=== PATIENT | female | born 1965 | race Caucasian/White ===

== ENCOUNTER 2020-03-29 09:26 | Inpatient (IN) | payer OTHER, SELFPAY ==
[2020-03-29] VITALS (10 sets, daily range): BP systolic 109–140; BP diastolic 58–97; PULSE 93–115; RESP 13–20; TEMP 36.9–37.1; O2SAT 92–100; BMI 35.9
--- NOTE | ~2020-03-29 | US_ITS ---
EXAMINATION: US venous doppler LE EXAM DATE: 03/30/2020 08:16 INDICATION: Pulmonary emboli PE . TECHNIQUE: Multiple grayscale, color flow and Doppler images of the lower extremity deep venous syste ms bilaterally were obtained and reviewed. There is no prior study for comparison. FINDINGS: Right side: The right common femoral, femoral and profunda veins demonstrate normal color flow, respi ratory variation, augmentation and compressibility. Compressibility, color flow confirmed within the right popliteal, posterior tibial, peroneal, and greater saphenous veins. Left side: The left common femoral, femoral and profunda veins demonstrate normal color flow, respira tory variation, augmentation and compressibility. Compressibility, color flow confirmed within the l eft popliteal, posterior tibial, peroneal, and greater saphenous veins. IMPRESSION: 1. No lower extremity deep venous thrombosis bilaterally. Reviewed, dictated and finalized at location A. THERAPIST
--- NOTE | ~2020-03-29 | CT_ITS ---
EXAMINATION: CT brain wo con EXAM DATE: 03/29/2020 10:56 INDICATION: syncope, headache . Dizziness. Breast cancer. TECHNIQUE: Spiral CT of the head was performed without contrast. Axial, coronal and sagittal images were reviewed. The dose-length product (DLP) for this examination was 605.33 mGy-cm. The exposure w as tailored according to patient size, and iterative reconstruction (ASIR) was used as additional dos e reduction technique. There is no prior study for comparison. FINDINGS: There is no acute intraparenchymal hemorrhage. No evidence of intraparenchymal brain mass lesion. No evidence of acute infarction. There is no mass effect or midline shift. The ventricles are normal in size. There are no extra-axial collections. There are no acute calvarial fractures. T he orbits are unremarkable. Soft tissue is unremarkable. The visualized sinuses and mastoid air naomie ls are well aerated. IMPRESSION: 1. No acute intracranial findings. Reviewed, dictated and finalized at location A. ANALYST
--- NOTE | ~2020-03-29 | CT_ITS ---
EXAMINATION: CTA chest PE protocol DATE: 03/29/2020 12:10 INDICATION: Syncope. TECHNIQUE: Computed tomography angiography (CTA) of the chest was performed with 100 mL Omnipaque-350 intravenous contrast timed to evaluate the pulmonary arteries. Coronal maximum intensity projection 3D-reconstructions were created by the technologist. Automated exposure control and iterative reconst ruction technique were employed. The dose-length product was 605.75 mGy-cm. COMPARISON: None. FINDINGS: There are scattered groundglass opacities in all lobes. The lung volumes are small. A calci fied right lung nodule and calcified right hilar lymph nodes are consistent with old granulomatous di sease. No pleural effusion. The heart size is normal. No pericardial effusion. A left upper extremity peripherally inserted central venous catheter (PICC) is seen with tip at the superior cavoatrial mckayla ction. Right brachiocephalic vein is small, and there are enlarged collateral veins. There are change s of left mastectomy. Calcifications in the spleen are consistent with old granulomatous disease. The re are changes of cholecystectomy. There is a small sliding hiatal hernia. There is a pulmonary embol us in basilar right lower lobe. There is mild thoracic spondylosis. IMPRESSION: 1. Acute pulmonary embolus in basilar right lower lobe. 2. Scattered groundglass opacities in all lobes suspicious for atypical pneumonia such as COVID-19 pn eumonia. 3. I discussed these results with Dr. Vuong on 03/29/20 at 12:19 PM. Reviewed, dictated and finalized at location A. AIDE IMPRESSION: 1. Acute pulmonary embolus in basilar right lower lobe. 2. Scattered groundglass opacities in all lobes suspicious for atypical pneumon ia such as COVID-19 pneumonia. 3. I discussed these results with Dr. Vuong on 03/29/20 at 12:19 PM.
--- NOTE | ~2020-03-29 | XR_ITS ---
EXAMINATION: XR chest 1V portable DATE: 03/29/2020 10:47 INDICATION: Syncope. TECHNIQUE: A single frontal view of the chest was obtained. COMPARISON: None. FINDINGS: There are interstitial opacities in left mid and lower lung zones. No pleural effusion or p neumothorax. The heart size is normal. A left upper extremity peripherally inserted central venous ca theter (PICC) is seen with tip at the superior cavoatrial junction. IMPRESSION: 1. Interstitial opacities in left mid and lower lung zones, consistent with mild atelectasis versus m ild pulmonary edema. Reviewed, dictated and finalized at location A. ON PULLER IMPRESSION: 1. Interstitial opacities in left mid and lower lung zones, consistent with mil d atelectasis versus mild pulmonary edema.
--- NOTE | 2020-03-29 10:10 | ECG_ITS ---
Measurements Intervals [place] Rate: 103 P: 39 KS: 123 QRS: -5 QRSD: 84 T: 23 QT: 338 QTc: 443 Interpretive Statements SINUS TACHYCARDIA BORDERLINE T WAVE ABNORMALITY- INFERIOR LEADS ABNORMAL ECG Electronically Signed On 03-29-2020 14:11:55 CHEMICAL RADIATION TECHNICIAN by Jaguar Almanza D.O.
--- NOTE | 2020-03-29 10:15 | PC.NURSE ---
Patient refused straight cath at this time, states unable to urinate at this time.
[2020-03-29 10:29] LABS: Glucose Point of Care 169 (65-105)
[2020-03-29] MEDS: SODIUM CHLORIDE 0.9% IV 1,000 ML 999 ML IV CONT (10:35)
[2020-03-29 10:50] LABS: Eosinophils Percent Auto 0.8 % (0-4.4); Hematocrit 26.9 % (37.0-47.0); Hemoglobin 8.8 g/dL (12.0-15.0); Immature Granulocyte Absolute 0.01 K/mm3 (0.00-0.031); Immature Granulocyte Percent A 0.4 % (0-0.5); Lymphocytes Absolute Auto 0.18 K/mm3 (0.9-3.2); Lymphocytes Percent Auto 6.8 % (18.3-44.2); Mean Corpuscular HGB Conc 32.7 g/dl (32-36); Mean Corpuscular Hemoglobin 32.5 pg (26-34); Mean Corpuscular Volume 99.3 fl (80-100); Mean Platelet Volume 10.2 fl (7.4-10.4); Monocytes Absolute Auto 0.1 K/mm3 (0.1-0.6); Neutrophils Absolute Auto 2.3 K/mm3 (1.3-6.7); Platelet Count Result 259 k/mm3 (150-375); Red Blood Count 2.71 M/mm3 (4.2-5.4); Red Cell Distribution Width 15.3 % (11.5-14.5); White Blood Count 2.6 K/mm3 (4.5-10.0)
[2020-03-29 11:00] LABS: Partial Thromboplastin Time 25.2 SECONDS (22.3-36.8)
[2020-03-29 11:04] LABS: INR 1.1; Prothrombin Time 14.5 Seconds (11.1-14.7)
[2020-03-29 11:07] LABS: D Dimer 0.54 ug/mL (<0.48)
--- NOTE | 2020-03-29 11:09 | PC.NURSE ---
Unable to flush PICC at this time, vascular access called and recommends cath sabrina.
[2020-03-29 11:14] LABS: Magnesium 1.9 mg/dL (1.6-2.3)
[2020-03-29 11:17] LABS: Alanine Aminotransferase 30 U/L (4-35); Albumin Level 3.8 g/dL (3.5-5.1); Alkaline Phosphatase 75 U/L (38-126); Anion Gap 10 mmol/L (8-16); Aspartate Amino Transferase 39 U/L (14-36); Bilirubin,Total 0.6 mg/dL (0.2-1.3); Blood Urea Nitrogen 15 mg/dL (7-17); Calcium 8.5 mg/dL (8.4-10.2); Carbon Dioxide 22 mmol/L (22-30); Chloride 105 mmol/L (98-107); Estimated CRCL calculation 101 ml/min; Estimated Glomerular Filt Rate > 60; Glucose 152 mg/dL (65-105); Potassium 3.8 mmol/L (3.4-5.0); Sodium 137 mmol/L (137-145)
[2020-03-29 11:28] LABS: Troponin I 0.032 ng/mL (0.000-0.034)
[2020-03-29] MEDS: LACTATED RINGERS 1,000 ML 999 ML IV CONT (12:25)
[2020-03-29] MEDS: ALTEPLASE 2 MG VIAL (CATHFLO) IV PUSH ×2 (12:25)
--- NOTE | 2020-03-29 13:03 | ED.DIZZY ---
HPI - Dizziness General Chief Complaint: Dizziness Stated Complaint: weakness, dizzines Time Seen by Provider: 03/29/20 09:39 Source: patient Mode of arrival: EMS Limitations: no limitations History of Present Illness HPI Narrative: This patient is a 54 year old female who presents for evaluation of syncopal episode. She was at work and she thinks she passed out. She was feeling fine before this event. She complaints of headache and dizziness currently. She denies chest pain, sob, nausea, vomiting or diarrhea. She is currently receiving chemotherapy for breast Cancer that was diagnosed a few months ago. She was started on Xarelto for a blood clot on her nima cath. Related Data Home Medications Medication Instructions Recorded Confirmed Claritin 10 mg BYMOUTH DAILY 03/29/20 03/29/20 Xarelto 20 mg BYMOUTH DAILY 03/29/20 03/29/20 paroxetine HCl 03/29/20 Allergies Allergy/AdvReac Type Severity Reaction Status Date / Time Sulfa (Sulfonamide Allergy Unknown Verified 03/29/20 14:55 Antibiotics) Review of Systems Review of Systems: All systems reviewed & are unremarkable except as noted in HPI and below Constitutional: Constitutional: Denies chills and Denies fever(s) Cardiovascular: Cardiovascular: Denies chest pain Respiratory: Respiratory: Denies cough and Denies dyspnea Gastrointestinal: Gastrointestinal: Denies abdominal pain, Denies nausea and Denies vomiting PMFSH Past Medical History Medical History (Updated 03/29/20 @ 18:48 by Sangita Vuong MD) Breast cancer Patient receives chemotherapy every Wednesday and her radiation will be again after she completed her chemotherapy. 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 She became a this past January when her went into renal failure. She has 3 children. She is a full code. She desires to have her daughter as her durable power commercial litigation attorney for healthcare. The patient is a lifelong nonsmoker. She does not use alcohol marijuana or illicit drugs. Smoking status: Never smoker Second hand tobacco smoke exposure: No Alcohol intake: never Substance use: never Living arrangements: alone Occupation/Education: occupation Gender identity (if verbalized by the patient): Female Sexual Orientation (if Verbalized by the Patient): Straight or Heterosexual Spiritual care concerns: Yes Exam Const: General: no acute distress and alert Orientation/consciousness: patient oriented x3 Other: she appears to not feel well HENMT: Head: normocephalic and atraumatic Face and sinus: face symmetric Mouth: Yes Normal oral and palatal mucosa present, Yes lip normal, Yes oropharynx normal and Yes moist mucous membranes Throat: posterior oropharynx normal Eyes: Pupils: Equal, round and reactive pupils present EOM: EOMs intact bilaterally Chest: Chest palpation & inspection: normal inspection of the chest Resp: Effort & Inspection: normal respiratory effort and no retractions Auscultation: clear to auscultation bilaterally Cardio: Rate: tachycardic Rhythm: regular rhythm Heart sounds: no murmurs GI: GI Palp: Yes Soft to palpation, No Tenderness to palpation present (GI), No Guarding due to palpation present (GI) and No Rigid due to palpation Auscultation: normal bowel sounds Skin: General skin exam: pallor Rashes: no rashes Neuro: General: patient oriented x3 and moves all extremities Course Vital Signs
[2020-03-29] MEDS: ENOXAPARIN 100 MG/ML SYRINGE SUB-Q (13:22)
[2020-03-29 14:09] LABS: Add Urine Microscopic? YES; Appearance Urine Clear (Clear); Bilirubin Urine Negative (Negative); Blood Urine Negative (Negative); Color Urine Yellow (Yellow); Glucose Urine UA Negative (Negative); Ketones Urine Negative (Negative); Leukocyte Esterase Ur Negative LEU/UL (Negative); Nitrate Urine Negative (Negative); Protein Urine 1+ mg/dL (Negative); RBC Urine 0-2 /hpf (0-2); Urobilinogen Urine Negative mg/dL (<2.0); WBC Urine 0-3 /hpf
[2020-03-29 14:18] LABS: Specific Grav Ur 1.058 (1.001-1.035)
--- NOTE | 2020-03-29 14:51 | ADMGEN ---
This patient, Gwendolyn Masterson, was admitted to [facility] Surg Room 328-01. Patient/family oriented to hospital policies and general routines including ID bracelet, bed and alarms, visiting hours, pain management, procedures, bathroom and other care routines, personal items, smoking policy, room service/diet, and visiting hours. Information on how to activate the Rapid Response Team has been discussed. Patient/Family are encouraged to report perceived risks to care and to ask questions if they do not understand what they are told or what they should do.
--- NOTE | 2020-03-29 18:29 | PM.IMHP ---
H&P: HPI History of Present Illness Date/Time: 03/29/20 18:29 Chief complaint: Syncope,Pulmonary Embolism,Possible COVID Narrative: Gwendolyn Masterson is a 54 year old female who resides in [place]. The patient lives approximately 2 hours away from here. The patient had been diagnosed with breast cancer September of this year. She had been receiving chemotherapy every Wednesday her last treatment was on Wednesday. The patient had not been back to work and decided that she was going to go to meeting for her work over the next 2 days. The patient had a history of having a blood clot around her Port-A-Cath and it was removed and now has a PICC line. The patient was sitting in her office at this meeting when she passed out. But the patient has been on Xarelto for her clot that she had an her Port-A-Cath. She states that she has been taking it daily. Patient had a CTA that was read as acute pulmonary embolus in basilar right lower lobe. Scattered ground glass opacities in all lobes suspicious for atypical pneumonia such as COVID-19. The patient was swabbed and was placed in isolation for possibility of having covid 19. The patient denies any fever chills. [id number] and she tells me that her normal baseline. Her white counts 2.6. Neutrophil 89.0. The patient was given subcu Lovenox and her Xarelto has been on hold. The patient's blood pressure was also found to be low when EMS was activated however her blood pressure was 116/73 when she was here in the emergency room. Patient had been on lisinopril at 1 time but had stopped taking it because her blood pressures were too low. Patient denies any shortness of breath and is on room air. The patient was being admitted/placed in observation bed on 3rd floor isolation. Date of service is 03/29/2020. Review of Systems Review of Systems: All systems reviewed & are unremarkable except as noted in HPI and below Constitutional: Constitutional: Reports as per HPI and Reports no additional constitutional complaints Eyes: Eyes: Reports as per HPI and Reports no additional eye complaints ENT: Reports system reviewed and no additional complaints, except as documented and Reports Normal hearing present Cardiovascular: Cardiovascular: Reports no additional cardiovascular complaints Respiratory: Respiratory: Reports no additional respiratory complaints and Reports no additional respiratory complaints Gastrointestinal: Gastrointestinal: Reports as per HPI and Reports no additional gastrointestinal complaints Musculoskeletal: Musculoskeletal: Reports no additional musculoskeletal complaints Integumentary/Breasts: Skin/Breast: Reports system reviewed and no additional complaints, except as docu and Reports as per HPI Neurologic: Reports system reviewed and no additional complaints, except as documented, Reports as per HPI and Reports Normal hearing present Psychiatric: Psychiatric: Reports no additional psychiatric complaints and Reports as per HPI Endocrine: Endocrine: Reports no additional endocrine complaints Hematologic/Lymphatic: Hematologic/Lymphatic: Reports no additional hematologic/lymphatic complaints Allergic/Immunologic: Allergic/Immunologic: Reports no additional allergic/immunologic complaints [facility] Past Medical History Medical History (Updated 03/29/20 @ 18:48 by Sangita Vuong MD) Breast cancer Patient receives chemotherapy every Wednesday and her radiation will be again after she completed her chemotherapy. Depression with anxiety Hypertension Patient stopped her Lisinopril Surgical History Surgical History (Updated 03/29/20 @ 18:37 by Dede Salas NP) H/O mastectomy History of partial hysterectomy History of removal of Port-a-Cath Due to blood clot Hx of cholecystectomy Family History Family History (Updated 03/29/20 @ 18:38 by Dede Salas NP) Father Hypertension Social History Social History (Updated 03/29/20 @ 18:39 by Dede Salas NP) Social History: The
[2020-03-29] MEDS: ONDANSETRON INJ 4 MG/2 ML VIAL IV PUSH (20:28)
[2020-03-30] VITALS (11 sets, daily range): BP systolic 104–136; BP diastolic 68–77; PULSE 84–106; RESP 14–20; TEMP 36.7–37.6; O2SAT 96–97
[2020-03-30] MEDS: ENOXAPARIN 120 MG/0.8 ML SYRINGE 105 MG SUB-Q ×2 (02:47→14:57)
[2020-03-30 05:35] LABS: Eosinophils Percent Auto 1.4 % (0-4.4); Hematocrit 24.4 % (37.0-47.0); Immature Granulocyte Absolute 0.01 K/mm3 (0.00-0.031); Immature Granulocyte Percent A 0.7 % (0-0.5); Lymphocytes Absolute Auto 0.46 K/mm3 (0.9-3.2); Lymphocytes Percent Auto 32.9 % (18.3-44.2); Mean Corpuscular HGB Conc 32.8 g/dl (32-36); Mean Corpuscular Hemoglobin 32.7 pg (26-34); Mean Corpuscular Volume 99.6 fl (80-100); Mean Platelet Volume 9.6 fl (7.4-10.4); Monocytes Absolute Auto 0.1 K/mm3 (0.1-0.6); Monocytes Percent Auto 4.3 % (2.6-8.5); Neutrophils Absolute Auto 0.9 K/mm3 (1.3-6.7); Neutrophils Percent Auto 60.7 % (45.5-73.1); Platelet Count Result 231 k/mm3 (150-375); Red Blood Count 2.45 M/mm3 (4.2-5.4); Red Cell Distribution Width 15.1 % (11.5-14.5)
[2020-03-30 05:42] LABS: White Blood Count 1.4 K/mm3 (4.5-10.0)
[2020-03-30 05:53] LABS: Alanine Aminotransferase 24 U/L (4-35); Albumin Level 3.4 g/dL (3.5-5.1); Alkaline Phosphatase 68 U/L (38-126); Anion Gap 3 mmol/L (8-16); Aspartate Amino Transferase 28 U/L (14-36); Bilirubin,Total 0.4 mg/dL (0.2-1.3); Blood Urea Nitrogen 10 mg/dL (7-17); Calcium 8.1 mg/dL (8.4-10.2); Carbon Dioxide 26 mmol/L (22-30); Chloride 108 mmol/L (98-107); Estimated CRCL calculation 116 ml/min; Estimated Glomerular Filt Rate > 60; Glucose 135 mg/dL (65-105); Potassium 3.7 mmol/L (3.4-5.0); Sodium 137 mmol/L (137-145)
[2020-03-30] MEDS: PARoxetine 20 MG TABLET PO (09:47)
--- NOTE | 2020-03-30 12:09 | PM.IMPN ---
Progress Note: A&P Assessment and Plan (1) Pulmonary emboli: Code(s): I26.99 - Other pulmonary embolism without acute cor pulmonale Status: Acute Assessment and Plan: She was on xarelto since 01/04/20 due to a thrombus associated with her port-a-cath. She reports xarelto compliance and has not missed any doses. Chest CTA demonstrates acute pulmonary embolism in the basilar right lower lobe. She is on lovenox SQ. Dr. Salgado has been consulted for his input regarding anticoagulation. Venous doppler US is negative for DVT. Continue lovenox SQ and await further hematology/oncology recommendations. She is not hypoxic. (2) Syncope: Code(s): R55 - Syncope and collapse Status: Acute Assessment and Plan: She did have a prodrome as she noticed she did not feel well. She stood up to go to the bathroom and subsequently had a brief loss of consciousness falling backwards which suggests orthostatic hypotension. She may have been dehydrated. Check orthostatic BP. Additional consideration includes syncope to acute pulmonary embolism. Telemetry demonstrates no evidence of arrhythmia. Check echocardiogram. Check TSH. (3) Atypical pneumonia: Code(s): J18.9 - Pneumonia, unspecified organism Status: Acute Assessment and Plan: Chest CTA demonstrated scattered groundglass opacities in all lobes suspicious for atypical pneumonia. COVID-19 testing was ordered and is pending. Continue empiric azithromycin and ceftriaxone pending COVID-19 results. Continue supportive care with bronchodilators, antiemetics as needed, and analgesics as needed. Check blood cultures, sputum cultures, and urinary antigens. (4) Suspected COVID-19 virus infection: Code(s): Z20.828 - Contact with and (suspected) exposure to other viral communicable diseases Status: Acute Assessment and Plan: COVID-19 testing was ordered and is pending. Continue droplet precautions. She is not hypoxic. Continue supportive care. (5) Depression with anxiety: Code(s): F41.8 - Other specified anxiety disorders Status: Chronic Assessment and Plan: Continue prior to admission paroxetine. (6) Breast cancer: Code(s): C50.919 - Malignant neoplasm of unspecified site of unspecified female breast Status: Chronic Assessment and Plan: She follows with Dr. Rafa Almaguer in [place], [place]. She is on taxol and already finished doxorubicin. Her last infsuion was Monday 03/26. She is s/p left mastectomy. 1 lymph node was positive per the pt but there was no evidence of metastasis. Continue hematology/oncology recommendations. (7) Leukopenia: Code(s): D72.819 - Decreased white blood cell count, unspecified Status: Acute Assessment and Plan: Chronic and likely secondary to her chemotherapy. Continue to monitor. Appreciate oncology input. (8) Anemia: Code(s): D64.9 - Anemia, unspecified Status: Acute Assessment and Plan: Likely secondary to chemotherapy. Continue to monitor. I did review recent labs and labs are close to her baseline. Continue to monitor and transfuse as needed to maintain Hb >7. Continue to monitor CBC daily. (9) Dizziness: Code(s): R42 - Dizziness and giddiness Status: Acute Assessment and Plan: Possibly secondary to concussion since she did hit her head. Head CT was unremarkable. She also reports a recent sinus infection and thinks it could be related to that as well. She has no focal deficits. Continue supportive care with physical and cognitive rest. Subjective Date/time seen: 03/30/20 12:09 Mrs. Masterson is a 54 y.o. female with PMH significant for breast cancer s/p left mastectomy and currently receiving taxol. She is seen in follow-up for an acute basilar PE while on xarelto therapy. Hematology/oncology has been consulted. She does not have any significant dyspnea. Her only com
[2020-03-30] MEDS: ACETAMINOPHEN 325 MG TABLET 650 MG PO (14:57)
[2020-03-30] MEDS: MECLIZINE HCL 12.5 MG TABLET PO ×2 (18:32→20:09)
[2020-03-30] MEDS: guaiFENesin 12 HR 600 MG TABCR 1200 MG PO (20:08)
[2020-03-31] VITALS (8 sets, daily range): BP systolic 101–136; BP diastolic 61–84; PULSE 76–97; RESP 16–20; TEMP 36.7–36.9; O2SAT 93–99
[2020-03-31] MEDS: ENOXAPARIN 120 MG/0.8 ML SYRINGE 105 MG SUB-Q ×2 (01:02→13:42)
[2020-03-31 05:40] LABS: Eosinophils Percent Auto 0.7 % (0-4.4); Hematocrit 22.8 % (37.0-47.0); Hemoglobin 7.4 g/dL (12.0-15.0); Immature Granulocyte Absolute 0.01 K/mm3 (0.00-0.031); Immature Granulocyte Percent A 0.7 % (0-0.5); Lymphocytes Absolute Auto 0.46 K/mm3 (0.9-3.2); Lymphocytes Percent Auto 33.3 % (18.3-44.2); Mean Corpuscular HGB Conc 32.5 g/dl (32-36); Mean Corpuscular Hemoglobin 31.6 pg (26-34); Mean Corpuscular Volume 97.4 fl (80-100); Mean Platelet Volume 9.4 fl (7.4-10.4); Monocytes Absolute Auto 0.1 K/mm3 (0.1-0.6); Monocytes Percent Auto 5.8 % (2.6-8.5); Neutrophils Absolute Auto 0.8 K/mm3 (1.3-6.7); Neutrophils Percent Auto 59.5 % (45.5-73.1); Platelet Count Result 229 k/mm3 (150-375); Red Blood Count 2.34 M/mm3 (4.2-5.4); Red Cell Distribution Width 15.2 % (11.5-14.5)
[2020-03-31 05:42] LABS: White Blood Count 1.4 K/mm3 (4.5-10.0)
--- NOTE | 2020-03-31 06:02 | PC.NURSE ---
During drawing morning labs for this patient from PICC line, this nurse asked the patient if she could give a sputum sample for lab test. The patient refused saying she can not cough anything up at this time. @0530
[2020-03-31 06:06] LABS: Anion Gap 7 mmol/L (8-16); Blood Urea Nitrogen 8 mg/dL (7-17); Calcium 7.9 mg/dL (8.4-10.2); Carbon Dioxide 25 mmol/L (22-30); Chloride 106 mmol/L (98-107); Estimated CRCL calculation 136 ml/min; Estimated Glomerular Filt Rate > 60; Glucose 130 mg/dL (65-105); Magnesium 1.7 mg/dL (1.6-2.3); Potassium 3.8 mmol/L (3.4-5.0); Sodium 138 mmol/L (137-145)
[2020-03-31 07:04] LABS: Crenated RBC 2+ (NORMAL); Platelet Estimate Adequate (Adequate); Stomatocytes 2+ (NORMAL); Tear Drop Cells 2+ (NORMAL)
[2020-03-31] MEDS: ACETAMINOPHEN 325 MG TABLET 650 MG PO ×2 (09:22→13:42)
[2020-03-31] MEDS: ONDANSETRON INJ 4 MG/2 ML VIAL IV PUSH ×2 (09:23→19:43)
[2020-03-31] MEDS: MECLIZINE HCL 12.5 MG TABLET PO ×4 (09:24→19:43)
[2020-03-31] MEDS: guaiFENesin 12 HR 600 MG TABCR 1200 MG PO ×2 (09:24→19:43)
[2020-03-31] MEDS: PARoxetine 10 MG, PARoxetine 20 MG 30 MG PO (09:51)
[2020-03-31] MEDS: LORATADINE 10 MG TABLET PO (12:24)
[2020-03-31] MEDS: FLUTICASONE PROPIONATE 0.05% NA SPR 16 GM BTL (*BKC) 1 SPRAY NASAL ×2 (12:24→19:43)
--- NOTE | 2020-03-31 13:31 | PM.IMPN ---
Progress Note: A&P Assessment and Plan (1) Pulmonary emboli: Code(s): I26.99 - Other pulmonary embolism without acute cor pulmonale Status: Acute Assessment and Plan: She was on xarelto since 01/04/20 due to a thrombus associated with her port-a-cath. She reports xarelto compliance and has not missed any doses. Chest CTA demonstrates acute pulmonary embolism in the basilar right lower lobe. She is on therapeutic lovenox SQ. Dr. Salgado has been consulted for his input regarding anticoagulation. Venous doppler US is negative for DVT. Continue therapeutic lovenox SQ and await further hematology/oncology recommendations. She is not hypoxic. (2) Syncope: Code(s): R55 - Syncope and collapse Status: Acute Assessment and Plan: She did have a prodrome as she noticed she did not feel well. She stood up to go to the bathroom and subsequently had a brief loss of consciousness falling backwards which suggests orthostatic hypotension. She may have been dehydrated. Orthostatic BP is negative for orthostatic hypotension. She did receive IV fluids at admission. Additional consideration includes syncope to known acute pulmonary embolism on chest CTA. Telemetry monitoring demonstrated sinus rhythm without evidence of arrhythmia. Echocardiogram was ordered and has not been completed yet. Check TSH. (3) Atypical pneumonia: Code(s): J18.9 - Pneumonia, unspecified organism Status: Acute Assessment and Plan: Chest CTA demonstrated scattered groundglass opacities in all lobes suspicious for atypical pneumonia. COVID-19 testing was ordered and is pending. Continue empiric azithromycin and ceftriaxone pending COVID-19 results. Continue supportive care with bronchodilators, antiemetics as needed, and analgesics as needed. Preliminary blood cultures show no growth. She is not coughing enough to obtain sputum cultures. Urine legionella and pneumococcal antigens are pending. She remains on room air. (4) Suspected COVID-19 virus infection: Code(s): Z20.828 - Contact with and (suspected) exposure to other viral communicable diseases Status: Acute Assessment and Plan: COVID-19 testing was ordered and is pending. Continue droplet precautions. She is not hypoxic. Continue supportive care. (5) Depression with anxiety: Code(s): F41.8 - Other specified anxiety disorders Status: Chronic Assessment and Plan: Continue prior to admission paroxetine. (6) Breast cancer: Code(s): C50.919 - Malignant neoplasm of unspecified site of unspecified female breast Status: Chronic Assessment and Plan: She follows with Dr. Rafa Almaguer in [place], [place]. She is on taxol and already finished doxorubicin. Her last infsuion was Monday 03/26. She is s/p left mastectomy. 1 lymph node was positive per the pt but there was no evidence of metastasis. Continue hematology/oncology recommendations. (7) Leukopenia: Code(s): D72.819 - Decreased white blood cell count, unspecified Status: Acute Assessment and Plan: Chronic and likely secondary to her chemotherapy. Continue to monitor. Appreciate oncology input. (8) Anemia: Code(s): D64.9 - Anemia, unspecified Status: Acute Assessment and Plan: Likely secondary to chemotherapy. Continue to monitor. I did review recent labs and labs are close to her baseline. Continue to monitor and transfuse as needed to maintain Hb >7. Continue to monitor CBC daily. (9) Dizziness: Code(s): R42 - Dizziness and giddiness Status: Acute Assessment and Plan: Improved. Possibly secondary to concussion since she did hit her head. Head CT was unremarkable. She also reports a recent sinus infection and thinks it could be related to that as well. Her dizziness has improved with improvement in her congestion. She has no focal deficits. Continue supportive care with phys
[2020-03-31 22:23] LABS: SARS-CoV-2 RNA PCR Positive
[2020-04-01] VITALS (9 sets, daily range): BP systolic 122–140; BP diastolic 69–90; PULSE 63–101; RESP 18–20; TEMP 36.6–37; O2SAT 95–98
--- NOTE | 2020-04-01 | ECHO_ITS ---
Patient Info Name: Gwendolyn Masterson Age: 54 years : 1965 Gender: Female Ht: 67 in Wt: 230 lbs BSA: 2.26 m2 HR: 83 bpm BP: 122 / 75 mmHg Heart Rhythm: Sinus Rhythm Technical Quality: Good Exam Date: 04/01/2020 9:31 AM Exam Location: [facility] Patient Status: Inpatient Admit Date: 03/30/2020 Staff Ordering Physician: Gricelda Gerber PA-C Cream Ripener: Justino Sullivan, EVE, RT Attending Provider: Gricelda Gerber PA-C Referring Physician: HUNG CASPER ; Exam Type: CA echo doppler color flow Study Info Indications R55 - Syncope and collapse Complete two-dimensional, color flow and Doppler transthoracic echocardiogram is performed. Summary 1. Complete two-dimensional, color flow and Doppler transthoracic echocardiogram is performed. 2. Left ventricular chamber dimension is normal. 3. Left ventricular systolic function is normal, estimated at 65-70%. 4. There is mildly increased left ventricular wall thickness. 5. The left ventricular diastolic function is normal. 6. Left atrial chamber dimension is mildly enlarged. 7. There is mild mitral valve regurgitation. 8. There is mild pulmonic regurgitation. Left Ventricle Left ventricular chamber dimension is normal. Left ventricular systolic function is normal, estimated at 65-70%. There is mildly increased left ventricular wall thickness. The left ventricular diastolic function is normal. Right Ventricle Right ventricular chamber dimension is normal. Right ventricular systolic function is normal. Left Atria Left atrial chamber dimension is mildly enlarged. Right Atria Right atrial chamber dimension is normal. Atrial Septum Intact interatrial septum visualized by color flow imaging. Aortic Valve The aortic valve is trileaflet. There is mild aortic valve sclerosis. There is no aortic valve stenosis. There is trace aortic valve regurgitation. Pulmonic Valve The pulmonic valve is normal. There is no pulmonic valve stenosis. There is mild pulmonic regurgitation. Mitral Valve The mitral valve has normal leaflets. There is no mitral valve stenosis. There is mild mitral valve regurgitation. Tricuspid Valve The tricuspid valve leaflets are normal. There is no significant tricuspid valve stenosis. There is trace tricuspid valve regurgitation. Pericardium/Pleural The pericardium appears normal. There is no pericardial effusion. Inferior Vena Cava Normal inferior vena cava with >50% collapse upon inspiration consistent with normal right atrial pressure, 5 mmHg. Aorta The aortic root size at the sinus of Valsalva is normal. Left Ventricular Outflow Tract Name Value Normal LVOT 2D LVOT Diameter 2.1 cm LVOT Doppler LVOT Peak Velocity 101 cm/s LVOT Peak Gradient 4 mmHg LVOT Mean Gradient 2 mmHg LVOT VTI 20 cm LVOT VTI/AV VTI Ratio 0.9 LVOT Stroke Volume 70 ml LVOT CO 5.5 l/min
[2020-04-01] MEDS: ENOXAPARIN 120 MG/0.8 ML SYRINGE 105 MG SUB-Q ×2 (00:37→13:08)
[2020-04-01] MEDS: ACETAMINOPHEN 325 MG TABLET 650 MG PO ×5 (00:57→20:49)
[2020-04-01] MEDS: ONDANSETRON INJ 4 MG/2 ML VIAL IV PUSH (00:57)
[2020-04-01 06:49] LABS: Eosinophils Percent Auto 1.2 % (0-4.4); Hematocrit 23.4 % (37.0-47.0); Hemoglobin 7.8 g/dL (12.0-15.0); Immature Granulocyte Absolute 0.01 K/mm3 (0.00-0.031); Immature Granulocyte Percent A 0.6 % (0-0.5); Lymphocytes Absolute Auto 0.58 K/mm3 (0.9-3.2); Lymphocytes Percent Auto 34.5 % (18.3-44.2); Mean Corpuscular HGB Conc 33.3 g/dl (32-36); Mean Corpuscular Hemoglobin 33.1 pg (26-34); Mean Corpuscular Volume 99.2 fl (80-100); Mean Platelet Volume 9.9 fl (7.4-10.4); Monocytes Absolute Auto 0.1 K/mm3 (0.1-0.6); Monocytes Percent Auto 5.4 % (2.6-8.5); Neutrophils Percent Auto 58.3 % (45.5-73.1); Platelet Count Result 243 k/mm3 (150-375); Red Blood Count 2.36 M/mm3 (4.2-5.4); Red Cell Distribution Width 15.4 % (11.5-14.5)
[2020-04-01 07:00] LABS: White Blood Count 1.7 K/mm3 (4.5-10.0)
[2020-04-01 07:34] LABS: Platelet Estimate Adequate (Adequate); Tear Drop Cells 2+ (NORMAL)
[2020-04-01] MEDS: guaiFENesin 12 HR 600 MG TABCR 1200 MG PO ×2 (09:21→20:34)
[2020-04-01] MEDS: LORATADINE 10 MG TABLET PO (09:21)
[2020-04-01] MEDS: PARoxetine 10 MG, PARoxetine 20 MG 30 MG PO (09:22)
[2020-04-01] MEDS: FLUTICASONE PROPIONATE 0.05% NA SPR 16 GM BTL (*BKC) 1 SPRAY NASAL ×2 (09:22→20:34)
[2020-04-01] MEDS: MECLIZINE HCL 12.5 MG TABLET PO ×4 (09:22→20:34)
[2020-04-01] MEDS: CENTRAL LINE FLUSH 10 ML IV PUSH ×2 (13:52→20:34)
--- NOTE | 2020-04-01 14:25 | PM.IMPN ---
Progress Note: A&P Assessment and Plan (1) Pulmonary emboli: Code(s): I26.99 - Other pulmonary embolism without acute cor pulmonale Status: Acute Assessment and Plan: She was on xarelto since 01/04/20 due to a thrombus associated with her port-a-cath. She reports xarelto compliance and has not missed any doses. Chest CTA demonstrates acute pulmonary embolism in the basilar right lower lobe. She is on therapeutic lovenox SQ. Dr. Salgado has been consulted for his input regarding anticoagulation. Venous doppler US is negative for DVT. Continue therapeutic lovenox SQ and await further hematology/oncology recommendations. She is not hypoxic. (2) Pneumonia due to COVID-19 virus: Code(s): U07.1 - COVID-19; J12.89 - Other viral pneumonia Status: Acute Assessment and Plan: Chest CTA demonstrated scattered groundglass opacities in all lobes suspicious for atypical pneumonia. COVID-19 testing is positive. Stop azithromycin. She does think her probable exposure was approximately 3 weeks ago. She developed a sinus infection several days after that exposure. She is not hypoxic so dexamethasone and remdesivir are not indicated. Continue supportive care with bronchodilators, antiemetics as needed, and analgesics as needed. Preliminary blood cultures show no growth. She is not coughing enough to obtain sputum cultures. Urine legionella and pneumococcal antigens are pending. Continue to monitor. (3) Sinus infection: Code(s): J32.9 - Chronic sinusitis, unspecified Status: Acute Assessment and Plan: Possibly viral given COVID-19 positive status. She did receive ceftriaxone empirically while COVID-19 test was pending and feels that her symptoms improved significantly. Will continue ceftriaxone. (4) Syncope: Code(s): R55 - Syncope and collapse Status: Acute Assessment and Plan: She did have a prodrome as she noticed she did not feel well. She stood up to go to the bathroom and subsequently had a brief loss of consciousness falling backwards which suggests orthostatic hypotension. She may have been dehydrated. Orthostatic BP is negative for orthostatic hypotension. She did receive IV fluids at admission. Additional consideration includes syncope to known acute pulmonary embolism on chest CTA. Telemetry monitoring demonstrated sinus rhythm without evidence of arrhythmia. Echocardiogram demonstrates normal LV chamber dimension, normal LV systolic function with EF 65-70%, mildly increased wall thickness, normal LV diastolic function, mild left atrial enlargement, and mild mitral and pulmonic regurgitation. TSH is 1.06. She has not had any further symptoms. (5) Suspected COVID-19 virus infection: Code(s): Z20.828 - Contact with and (suspected) exposure to other viral communicable diseases Status: Acute Assessment and Plan: COVID-19 testing was ordered and is positive. Continue droplet precautions. (6) Depression with anxiety: Code(s): F41.8 - Other specified anxiety disorders Status: Chronic Assessment and Plan: Continue prior to admission paroxetine. (7) Breast cancer: Code(s): C50.919 - Malignant neoplasm of unspecified site of unspecified female breast Status: Chronic Assessment and Plan: She follows with Dr. Rafa Almaguer in [place], [place]. She is on taxol and already finished doxorubicin. Her last infsuion was Monday 03/26. She is s/p left mastectomy. 1 lymph node was positive per the pt but there was no evidence of metastasis. Continue hematology/oncology recommendations. (8) Leukopenia: Code(s): D72.819 - Decreased white blood cell count, unspecified Status: Acute Assessment and Plan: Chronic and likely secondary to her chemotherapy. Continue to monitor. Absolute neutrophil count is 1.0 today. I have called Dr. Ace's office for further input/recommendations and he is fi
[2020-04-02] VITALS: BP 132/84; PULSE 75; RESP 20; TEMP 36.7; O2SAT 97
[2020-04-02] MEDS: ENOXAPARIN 120 MG/0.8 ML SYRINGE 105 MG SUB-Q (01:32)
[2020-04-02 04:00] VITALS: BP 126/84; PULSE 83; RESP 20; TEMP 36.8; O2SAT 95
[2020-04-02] MEDS: CENTRAL LINE FLUSH 10 ML IV PUSH (05:29)
[2020-04-02] MEDS: ACETAMINOPHEN 325 MG TABLET 650 MG PO (05:31)
[2020-04-02 05:40] LABS: Eosinophils Percent Auto 2.1 % (0-4.4); Hematocrit 24.1 % (37.0-47.0); Hemoglobin 7.7 g/dL (12.0-15.0); Immature Granulocyte Absolute 0.01 K/mm3 (0.00-0.031); Immature Granulocyte Percent A 0.5 % (0-0.5); Lymphocytes Absolute Auto 0.61 K/mm3 (0.9-3.2); Lymphocytes Percent Auto 32.1 % (18.3-44.2); Mean Corpuscular Hemoglobin 31.7 pg (26-34); Mean Corpuscular Volume 99.2 fl (80-100); Mean Platelet Volume 9.8 fl (7.4-10.4); Monocytes Absolute Auto 0.1 K/mm3 (0.1-0.6); Monocytes Percent Auto 6.3 % (2.6-8.5); Neutrophils Absolute Auto 1.1 K/mm3 (1.3-6.7); Platelet Count Result 258 k/mm3 (150-375); Red Blood Count 2.43 M/mm3 (4.2-5.4); Red Cell Distribution Width 15.5 % (11.5-14.5)
[2020-04-02 07:15] LABS: White Blood Count 1.9 K/mm3 (4.5-10.0)
[2020-04-02 08:00] VITALS: BP 140/95; PULSE 75; RESP 16; TEMP 36.8; O2SAT 95
[2020-04-02] MEDS: guaiFENesin 12 HR 600 MG TABCR 1200 MG PO (09:35)
[2020-04-02] MEDS: FLUTICASONE PROPIONATE 0.05% NA SPR 16 GM BTL (*BKC) 1 SPRAY NASAL (09:35)
[2020-04-02] MEDS: MECLIZINE HCL 12.5 MG TABLET PO (09:36)
[2020-04-02] MEDS: LORATADINE 10 MG TABLET PO (09:36)
[2020-04-02] MEDS: PARoxetine 10 MG, PARoxetine 20 MG 30 MG PO (09:36)
--- NOTE | 2020-04-02 11:21 | PM.DS ---
DS: Admitting Diagnosis Admitting Diagnosis Admitting Diagnosis: Syncope,Pulmonary Embolism,Possible COVID DS: Discharge Diagnosis Discharge Diagnosis (1) Pulmonary emboli: Code(s): I26.99 - Other pulmonary embolism without acute cor pulmonale Status: Acute Assessment and Plan: She was on xarelto since 01/04/20 due to a thrombus associated with her port-a-cath. She reports xarelto compliance and has not missed any doses. Chest CTA demonstrates acute pulmonary embolism in the basilar right lower lobe. Previous provider spoke with her oncologist and she was transitioned to lovenox. Venous doppler US is negative for DVT. She is not hypoxic nor had any SOB. (2) Pneumonia due to COVID-19 virus: Code(s): U07.1 - COVID-19; J12.89 - Other viral pneumonia Status: Acute Assessment and Plan: Chest CTA demonstrated scattered groundglass opacities in all lobes suspicious for atypical pneumonia. COVID-19 testing is positive. She developed a sinus infection several days after that her COVID exposure and feeling better on the abx. She is not hypoxic so dexamethasone and remdesivir were not given. (3) Sinus infection: Code(s): J32.9 - Chronic sinusitis, unspecified Status: Acute Assessment and Plan: Possibly viral given COVID-19 positive status. She did receive ceftriaxone empirically while COVID-19 test was pending and feels that her symptoms improved significantly. Will continue cefdinir (4) Syncope: Code(s): R55 - Syncope and collapse Status: Acute Assessment and Plan: She did have a prodrome as she noticed she did not feel well. She stood up to go to the bathroom and subsequently had a brief loss of consciousness falling backwards which suggests orthostatic hypotension. She may have been dehydrated. Orthostatic BP is negative for orthostatic hypotension. She did receive IV fluids at admission with no reoccurrence. Additional consideration includes syncope to known acute pulmonary embolism on chest CTA although it doesn't seem big enough to cause the syncope alone. Telemetry monitoring demonstrated sinus rhythm without evidence of arrhythmia. Echocardiogram demonstrates normal LV chamber dimension, normal LV systolic function with EF 65-70%, mildly increased wall thickness, normal LV diastolic function, mild left atrial enlargement, and mild mitral and pulmonic regurgitation. TSH is 1.06. She has not had any further symptoms. (5) Suspected COVID-19 virus infection: Code(s): Z20.828 - Contact with and (suspected) exposure to other viral communicable diseases Status: Acute Assessment and Plan: COVID-19 testing was ordered and is positive. Continue quarantine recommendations (6) Depression with anxiety: Code(s): F41.8 - Other specified anxiety disorders Status: Chronic Assessment and Plan: Continue prior to admission paroxetine. (7) Breast cancer: Code(s): C50.919 - Malignant neoplasm of unspecified site of unspecified female breast Status: Chronic Assessment and Plan: She follows with Dr. Rafa Almaguer in [place], [place]. She is on taxol and already finished doxorubicin. Her last infsuion was Monday 03/26. She is s/p left mastectomy. 1 lymph node was positive per the pt but there was no evidence of metastasis. Continue hematology/oncology recommendations. (8) Leukopenia: Code(s): D72.819 - Decreased white blood cell count, unspecified Status: Acute Assessment and Plan: Chronic and likely secondary to her chemotherapy. Continue to monitor. Previous provider had called Dr. Ace's office for further input/recommendations and he is fine with her absolute neutrophils and WBC at this time. (9) Anemia: Code(s): D64.9 - Anemia, unspecified Status: Acute Assessment and Plan: Likely secondary to chemotherapy. stable (10) Dizziness:
[2020-04-03 22:45] LABS: Legionella pneumophila Ag Ur Not Detected (Not Detected)
[2020-04-08 10:58] LABS: Pneumococcal Antigen Urine Not Detected (Not Detected)
--- NOTE | 2020-05-17 14:23 | P.CONONC_ITS ---
HPI - Date of Consult Date/Time: 05/17/20 14:23 Requesting Physician: Evie King PA-C Primary Care Provider: PHYSICIAN NOT ON STAFF - Consult Narrative Reason for consult: Hyperkalemia state Narrative: Gwendolyn Masterson is a 54 year old female Patient was not seen. Dr. Salgado was out of town due to family emergency Review of Systems - Neurologic Reports system reviewed and no additional complaints, except as documented, Reports hearing normal [facility] Medical History: Medical History (Last Updated 03/29/20 @ 18:38 by Dede Salas NP) Breast cancer Patient receives chemotherapy every Wednesday and her radiation will be again after she completed her chemotherapy. Depression with anxiety Hypertension Patient stopped her Lisinopril Surgical History: Surgical History (Last Updated 03/29/20 @ 18:37 by Dede Salas NP) H/O mastectomy History of partial hysterectomy History of removal of Port-a-Cath Due to blood clot Hx of cholecystectomy Family History: Family History (Last Updated 03/29/20 @ 18:38 by Dede Salas NP) Father Hypertension - Social History Social History: Social History (Last Updated 03/29/20 @ 18:39 by Dede Salas NP) Gender Identity: Gender identity (if verbalized by the patient): Female Sexual Orientation: Sexual Orientation (if Verbalized by the Patient): Straight or Heterosexual Alcohol Use: Alcohol intake: never Substance Use: Substance use: never Others: Spiritual care concerns: Yes Living Arrangements: Living arrangements: alone Oppucation/Education: Occupation/Education: occupation Smoking Status: Smoking status: Never smoker Second hand tobacco smoke exposure: No Meds Home Medications Medication Instructions Recorded Confirmed Type Claritin 10 mg BYMOUTH DAILY 03/29/20 03/29/20 History paroxetine HCl 30 mg PO DAILY 03/29/20 03/30/20 History cefdinir 300 mg PO Q12H 4 Days #8 cap 04/02/20 Rx enoxaparin [Lovenox] 105 mg SUBCUT Q12H #28 syr 04/02/20 Rx guaifenesin [Mucinex] 600 mg PO Q12H PRN #30 tablet 04/02/20 Rx Allergies Allergy/AdvReac Type Severity Reaction Status Date / Time Sulfa (Sulfonamide Allergy Unknown Verified 03/29/20 14:55 Antibiotics) Results - Labs CBC & Chem 7: 04/02/20 05:24 03/31/20 05:22 Assessment and Plan - Additional Plan Patient was not seen as Dr. Salgado was not available as he was out of town due to family emergency.
== END 2020-04-02 12:00 | disposition home or self-care (01) | DRG 177 ==
LOC: ANHED 11:12 → ANH3MEDSUR 13:46
PROVIDERS: Physician Assistant; Admitting Provider Internal Medicine; Emergency Provider General Practice; Visit Provider Physician Assistant
DX: U07.1 COVID-19 (principal); I26.99 Other pulmonary embolism without acute cor pulmonale; J12.89 Other viral pneumonia; J32.9 Chronic sinusitis, unspecified; C50.919 Malignant neoplasm of unspecified site of unspecified female breast; D64.81 Anemia due to antineoplastic chemotherapy; D70.1 Agranulocytosis secondary to cancer chemotherapy; T45.1X5A Adverse effect of antineoplastic and immunosuppressive drugs, initial encounter; R55 Syncope and collapse; F41.8 Other specified anxiety disorders; I10 Essential (primary) hypertension; R42 Dizziness and giddiness; W18.39XA Other fall on same level, initial encounter; Z79.899 Other long term (current) drug therapy; Z88.2 Allergy status to sulfonamides; Z79.01 Long term (current) use of anticoagulants
CPT/HCPCS: 36415; 70450; 71045; 71275; 77071; 80048; 80053; 81001; 82948; 83605; 83735; 84443; 84484; 85025; 85380; 85610; 85730; 87040; 87449; 87635; 87899; 93005; 93306; 93970; 96361; 96365; 96367; 96372; 96375; A9270; C9803; G0378; J0456; J0696; J1650; J2405; J2997; J7030; J7120; Q9967; U0003